=== PATIENT | male | born 1960 | race Caucasian/White ===

== ENCOUNTER 2018-06-08 23:26 | Emergency (ER) | payer OTHER ==
[~2018-06-08] VITALS: Ht 193 cm; Wt 149.7 kg
[~2018-06-08 23:26] MED LIST: ADVIL200 MG PO; BACTRIM DS TAB1 EACH PO; BISACODYL5 MG PO; CRUTCH1 EACH; CYCLOBENZAPRINE10 MG PO; CYCLOBENZAPRINE5 MG PO; FLOMAX0.4 MG PO; HYDROXYZINE HCL25 MG PO; KEFLEX500 MG PO; MOBIC7.5 MG PO; NORCO 7.5-3251 EACH PO; OMEPRAZOLE20 MG PO; OXYCODONE HCL5 MG PO
[2018-06-08] MEDS ORDERED: ZANTAC150 MG PO (23:35)
[2018-06-09] MEDS ORDERED: NORCO 5-325 TA1 EACH PO (00:07)
[2018-06-09] MEDS ORDERED: CRUTCH1 EACH MISC (00:08)
== END 2018-06-09 00:42 | disposition home or self-care (01) ==
LOC: ED 23:26
DX: S82.441A Displaced spiral fracture of shaft of right fibula, initial encounter for closed fracture (principal); Z86.19 Personal history of other infectious and parasitic diseases; F17.200 Nicotine dependence, unspecified, uncomplicated; Z88.0 Allergy status to penicillin; Z79.899 Other long term (current) drug therapy; W01.0XXA Fall on same level from slipping, tripping and stumbling without subsequent striking against object, initial encounter
CPT/HCPCS: 73610; 99283

== ENCOUNTER 2018-07-16 07:40 | Day surgery (SDC) | payer OTHER ==
[~2018-07-16] VITALS: Ht 193 cm; Wt 145.7 kg
[~2018-07-16 07:40] MED LIST changes: +CRUTCH1 EACH MISC; +NORCO 5-325 TA1 EACH PO; +ZANTAC150 MG PO
--- NOTE | 2018-07-16 13:20 | NUR ---
07/16/18 1320 Sheets,Kami 1313 PT ARRIVED TO PACU ON 10L VIA MASK WITH ORAL AIRWAY IN PLACE. PT NONAROUSABLE TO PAINFUL STIMULI.
--- NOTE | 2018-07-16 14:24 | NUR ---
NO NON VERBAL SIGNS OF PAIN NOTED. PATIENT IS SLURRING HIS WORDS AND FALLING ASLEEP WHILE TALKING TO ME. SANDWICH ORDERED FROM DIETARY. ICED WATER GIVEN. CALL LIGHT W/IN REACH. CONTINUOUS PULSE OXIMETER IN PLACE.
--- NOTE | 2018-07-16 14:41 | NUR ---
OXIMETER IS ALARMING. THIS RN ENTERS THE ROOM AND OXYGEN SATURATION IS 88% ON RA. PATIENT'S NAME CALLED LOUDLY. PATIENT DOES NOT WAKE UP. PATIENT'S CHEST IS TAPPED AND HIS NAME IS CALLED LOUDLY AND PATIENT OPENS HIS EYES. PATIENT'S WORDS CONTINUE TO BE SLURRED AND PATIENT IS TALKING NONSENSE - TALKS ABOUT PUTTING A CORK ON HIS PHONE SO HE DOESN'T STAB HIMSELF IN THE EYE. PATIENT ASKS ME TO PUT HIS SANDWICHES ON HIS FACE. PATIENT'S SANDWICHES HAVE NOT ARRIVED FROM DIETARY. PATIENT FALLS QUICKLY BACK TO SLEEP WHEN LEFT UNSTIMULATED AND FALLS QUICKLY TO 88% ON RA. PATIENT IS PLACED ON 2L VIA NC AND OXYGEN SATURATION IS 97% ON 2L.
--- NOTE | 2018-07-16 15:31 | NUR ---
PATIENT'S TOP DENTURE IS HANGING OUT OF HIS MOUTH WHEN THIS RN ENTERS THE ROOM. PATIENT DOES NOT WAKE TO LOUD VOICE. PATIENT'S CHEST IS TAPPED AND HIS VOICE IS SAID LOUDLY AND PATIENT STARTLES AWAKE. PATIENT UNABLE TO STAY AWAKE TO ANSWER QUESTIONS. SANDWICHES ARE PRESENT IN FRONT OF THE PATIENT AND 1/2 THE GRILLED CHEESE HAS BEEN EATEN. CRUMBS AND MELTED CHEESE ARE NOTED TO THE FRONT OF THE PATIENT'S GOWN. CONTINUOUS PULSE OXIMETER REMAINS IN PLACE.
[2018-07-16] MEDS ORDERED: NORCO 10-325 T1 EACH PO (16:17)
--- NOTE | 2018-07-16 16:19 | NUR ---
LE 1600: PATIENT RINGS CALL LIGHT AND DEMANDS A URINAL. PATIENT APPEARS ANXIOUS. PATIENT GIVEN A URINAL. PATIENT VOIDS 500 ML DARK YELLOW URINE AND IS AWAKE AND EATING HIS SANDWICH. PATIENT DENIES ADD'L NEEDS @ THIS TIME.
--- NOTE | 2018-07-16 16:35 | NUR ---
PATIENT'S CONTINUOUS PULSE OXIMETER IS ALARMING. PATIENT HAS REMOVED HIS OXYGEN MASK AND HIS OXYGEN SATURATION IS 89% PATIENT IS ASLEEP WITH HIS SANDWICH AND HIS BAG OF CHIPS IN HIS HAND. PATIENT DOES NOT ROUSE WITH LOUD VOICE. PATIENT IS TAPPED ON HIS CHEST AND LOUD VOICE. PATIENT FALLS QUICKLY BACK TO SLEEP WHEN LEFT UNSTIMULATED.
--- NOTE | 2018-07-16 16:48 | NUR ---
PATIENT'S OXIMETER IS ALARMING. PATIENT IS ASLEEP. HIS OXYGEN SATURATION IS 84% ON RA. PATIENT DOES NOT ROUSE TO MY LOUD VOICE. OXYGEN IS PLACED INTO PATIENT'S NOSE VIA NC AND PATIENT DOES NOT ROUSE. PATIENT'S TOP DENTURE IS HANGING OUT OF HIS MOUTH. PATIENT IS PLACED ON 2L NC AND CONTINUOUS PULSE OXIMETER CONTINUES TO BE IN PLACE. PATIENT'S SPOUSE ARRIVES AT THE HOSPITAL AND ATTEMPTS TO WAKE THE PATIENT WITHOUT SUCCESS. PATIENT'S SPOUSE IS LEAVING TO RUN ERRANDS AND WILL CHECK BACK LATER.
--- NOTE | 2018-07-16 17:41 | NUR ---
PATIENT ARRIVED FROM DAY SURGERY. PATIENT TRANSFERRED FROM [facility] TO BED WITH SLIDER BOARD AND 3 ASSIST. PATIENT HAS PROFOUND WEAKNESS "NO SHOULDER JOINT" AND UNABLE TO ASSIST SELF. RIGHT LEG IN BOOT, ELEVATED ON PILLOWS, ICE IN PLACE. PATIENT RATES PAIN 4/10, APPEARS TO BE COMFORTABLE. PATIENT IS ON 2L OF OXYGEN FOR 95%. BARRIER TO DISCHARGE: PATIENT IS UNABLE TO USE ARMS WELL/CRUTCHES AND IS NON-WEIGHT BEARING TO RIGHT LEG; NEED FOR OXYGEN AT THIS TIME. DINNER ORDERED FOR PATIENT.
--- NOTE | 2018-07-16 19:30 | NUR ---
PATIENT SNORING IN BED, GOT REPORT, O2 SATS 95% ON ROOM AIR.
--- NOTE | 2018-07-16 20:06 | NUR ---
PATIENT HAS EATEN HIS THIRD DINNER, BUT THEN GOES RIGHT BACK TO SLEEP. GIRLFRIEND COMING IN TO VISIT. VS HAVE BEEN STABLE. PATIENT IS NOT IN ANY PAIN.
--- NOTE | 2018-07-16 22:00 | NUR ---
PATIENT CALLED AND ASKED FOR MORE FOOD AFTER GIRLFRIEND AND DAUGHTER LEFT, BUT WAS ASLEEP BY THE TIME I GOT TO THE ROOM.
--- NOTE | 2018-07-16 23:04 | NUR ---
PATIENT RESTING, EYES CLOSED SNORING, SATS 100% ON ROOM AIR.
--- NOTE | 2018-07-17 00:39 | NUR ---
PATIENT WAS INCONTINENT STOOL THROUGHOUT HIS BED. GOT HIM TO THE BATHROOM WITH HIS CRUTCHES AND WASHED UP. NEW GOWN AND ATTENDS. DIRTY UNDERWEAR PLACED IN A SEPERATE BELONGING BAG. PATIENT ASKED I CALL HIS GIRLFRIEND TO COME GET HIM. I DID AND SHE COULD NOT COME GET HIM. HE IS BACK IN BED NOW EATING MORE SNACKS.
--- NOTE | 2018-07-17 01:53 | NUR ---
PATIENT CURRENTLY IN THE REST ROOM AGAIN ESCHORTED BY LUIS ANGEL FIELDS WITH PATIENT USING HIS CRUTCHES.
--- NOTE | 2018-07-17 02:30 | NUR ---
medicated with norco 1 tab 10/10 r leg pain
--- NOTE | 2018-07-17 03:05 | NUR ---
PATIENT'S PAIN IS DOWN TO 0/10 AND HE ASKED FOR A BLANKET AND LIGHTS OUT AND HE IS GOING TO TRY AND GET SOME SLEEP.
--- NOTE | 2018-07-17 06:24 | NUR ---
PATIENT HAD INFORMED LUIS ANGEL FIELDS THAT [facility] HAD TAKEN HIS 10/10 PAIN TO 0/10 OVER 30 MINUTES AND THEN SAID HE WAS BACK TO 10/10 PAIN AGAIN. I PREMEDICATED PATIENT WITH 4MG ZOFRAN AND THEN 4MG OF IV MORPHINE. PATIENT'S PAIN IS ALREADY COMING DOWN.
--- NOTE | 2018-07-17 06:36 | NUR ---
PATIENT UP TO THE BATHROOM SEVERAL TIMES TO PEE AND HAD STOOLS WALKING WITH HIS CRUTCHES AND STANDBY ASSIST. SOILED THE BED ONCE AND IT HAD TO BE CHANGED. CURRENTLY TRYING TO BRING DOWN PATIENT'S RIGHT LEG PAIN.
--- NOTE | 2018-07-17 09:30 | NUR ---
PT UP IN BATHROOM WITH BURGLARY INVESTIGATOR. PT HAS BEEN INSTRUCTED NOT TO BEAR WEIGHT ON SURGICAL EXTREMITY. PT CONTINUES TO BEAR WEIGHT ON LEG, EVEN WITH CONTINUED INSTRUCTION NOT TO.
--- NOTE | 2018-07-17 12:34 | NUR ---
PT LAYING ON BED, DRESSED AND SAID HE WAS WAITING FOR A RIDE HE HOPES IS COMING. I INFORMED OF A CARE RIDE IF HE NEEDED ONE. HE THANKED ME, AND I EXTENDED A BLESSING.
--- NOTE | 2018-07-21 07:09 | OR ---
[facility] [address], [place] [address] Signed DATE OF OPERATION: 07/16/2018 SURGEON: Nathan Mendez MD PREOPERATIVE DIAGNOSIS: Malunion distal fibular fracture right with lateral talar shift. POSTOPERATIVE DIAGNOSIS: Malunion distal fibular fracture right with lateral talar shift. PROCEDURE PERFORMED: Fibular osteotomy and revision ankle fracture right. ANESTHESIA: General. SPECIMENS AND COMPLICATIONS: There were no specimens or complications. TOURNIQUET TIME: About an hour. WHAT WAS DONE: The patient was taken to the operating room. After anesthesia was induced and airway secured, the patient's right lower extremity was positioned prepped and draped in the routine sterile fashion. A straight lateral approach was made over the distal fibula. Skin and subcutaneous tissue were divided sharply. Distal fibula was exposed laterally and posterolaterally with a #15 blade and a periosteal elevator. The fracture site had abundant callus but had actually already significantly calcified and appeared healed. We mobilized a portion of it laterally but then used an osteotome to refracture the fibula through the old primary fracture line. We then able to pull the distal fragment distally to regain fibular length. We made a small counter incision medially, used a large pelvic reduction clamp to close down the mortise medially. We then you use a couple of K-wires to provisionally hold the fibula in place. We then secured the construct with an 8-hole one-third semitubular plate. This gave us good alignment, good position, excellent apposition of the osteotomy site and a concentric ankle joint. The wound was then copiously irrigated and closed in a standard fashion. A sterile dressing, a bulky dressing were placed. He was placed in a new Cam walker boot. He was awakened, taken to the recovery room where he arrived in stable condition. Counts were correct and Electronically Signed By: NATHAN MENDEZ MD 07/21/18 0709 PATIENT NAME: BECKY KWOK OPERATIVE REPORT DATE OF : 62 REPORT #: [id number] PHYSICIAN: NATHAN MENDEZ MD PCP: ALIA SKINNER MD REPORT IS CONFIDENTIAL AND NOT TO BE RELEASED WITHOUT AUTHORIZATION [address] [place], [place] [address] Signed antibiotic protocols were followed. Nathan Mendez MD WFB/MODL /[id number] Copies: ~ Electronically Signed By: NATHAN MENDEZ MD 07/21/18 0709 PATIENT NAME: EBCKY KWOK OPERATIVE REPORT DATE OF : 62 REPORT #: [id number] PHYSICIAN: NATHAN MENDEZ MD PCP: ALIA SKINNER MD REPORT IS CONFIDENTIAL AND NOT TO BE RELEASED WITHOUT AUTHORIZATION
== END 2018-07-17 10:30 | disposition home or self-care (01) ==
LOC: DS 07:40 → MS 17:15 → DS 07-17 10:30 → MS 07-17 10:30
PROVIDERS: Orthopaedic Surgery
PROC: 0QHJ04Z Insertion of Internal Fixation Device into Right Fibula, Open Approach (ICD-10-PCS; principal; 2018-07-16 11:00)
DX: S82.831P Other fracture of upper and lower end of right fibula, subsequent encounter for closed fracture with malunion (principal); K21.9 Gastro-esophageal reflux disease without esophagitis; I10 Essential (primary) hypertension; F17.210 Nicotine dependence, cigarettes, uncomplicated; Z88.0 Allergy status to penicillin; Z79.899 Other long term (current) drug therapy
CPT/HCPCS: 01480; 64445; 73600; 76942; C1713; J0690; J0735; J1100; J1885; J2250; J2270; J2405; J2704; J2765; J3010; J7120; L4386

== ENCOUNTER 2021-03-04 17:26 | Emergency (ER) | payer OTHER ==
[~2021-03-04] VITALS: Ht 193 cm; Wt 127.9 kg
[~2021-03-04 17:26] MED LIST changes: +NORCO 10-325 T1 EACH PO
[2021-03-04] MEDS ORDERED: OMEPRAZOLE20 MG PO (18:30)
[2021-03-04] MEDS ORDERED: NAPRELAN500 MG PO (18:31)
[2021-03-04] MEDS ORDERED: HYDROCODON-ACE1 EA10 PO (21:46)
[2021-03-04] MEDS ORDERED: DOXYCYCLINE HY100 MG PO (21:46)
== END 2021-03-04 22:15 | disposition home or self-care (01) ==
LOC: ED 17:26
DX: D17.9 Benign lipomatous neoplasm, unspecified (principal); F17.200 Nicotine dependence, unspecified, uncomplicated; Z88.0 Allergy status to penicillin; Z79.899 Other long term (current) drug therapy
CPT/HCPCS: 76882; 99283-25

== ENCOUNTER 2021-07-24 11:39 | Emergency (ER) | payer OTHER ==
[~2021-07-24] VITALS: Ht 193 cm; Wt 128.0 kg
[~2021-07-24 11:39] MED LIST changes: +DOXYCYCLINE HY100 MG PO; +HYDROCODON-ACE1 EA10 PO; +NAPRELAN500 MG PO
[2021-07-24] MEDS ORDERED: TAMIFLU75 MG PO (14:34)
[2021-07-24] MEDS ORDERED: PREDNISONE20 MG PO (14:34)
--- NOTE | 2021-07-26 11:42 | EKG ---
[facility] [address] [facility] [place], [place] [address] Signed Normal sinus rhythm Right axis deviation Abnormal ECG When compared with ECG of 09-NOV-2018 13:30, No significant change was found Confirmed by CLAUDIO CISSE MD ([id number]) on 07/26/2021 11:42:23 AM Electronically Signed By: CLAUDIO CISSE MD 07/26/21 1142 PATIENT NAME: BECKY KWOK Electrocardiogram DATE OF : 62 PHYSICIAN: CLAUDIO CISSE MD REPORT #: [id number] REPORT IS CONFIDENTIAL AND NOT TO BE RELEASED WITHOUT AUTHORIZATION
== END 2021-07-24 15:13 | disposition home or self-care (01) ==
LOC: ED 11:39
DX: J10.1 Influenza due to other identified influenza virus with other respiratory manifestations (principal); J45.909 Unspecified asthma, uncomplicated; F17.200 Nicotine dependence, unspecified, uncomplicated; Z88.0 Allergy status to penicillin; Z79.899 Other long term (current) drug therapy; Z20.822 Contact with and (suspected) exposure to COVID-19
CPT/HCPCS: 36415; 71045; 80048; 83880; 85025; 93005; 93010; 94640; 94664; 96374; 99285-25; C9803; J2930; U0003

== ENCOUNTER 2021-08-02 12:41 | Emergency (ER) | payer OTHER ==
[~2021-08-02] VITALS: Ht 193 cm; Wt 128.0 kg
[~2021-08-02 12:41] MED LIST changes: +PREDNISONE20 MG PO; +TAMIFLU75 MG PO
--- OUTSIDE RECORDS SUMMARY | 2021-08-02 12:44 | XMS ---
PreManage Notification: BECKY KWOK Security Move Coordinator Events No recent Security Events currently on file CRITERIA MET - [facility] - 2 Visits in 30 Days CARE PROVIDERS There are no care providers on record at this time. [place] has no Care Guidelines for this patient. [facility] VISIT COUNT (12 MO.) 1 [facility] [address] [facility] TOTAL 4 NOTE: Visits indicate total known visits. ED/C VISIT TRACKING (12 MO.) 08/02/2021 12:42 [facility] [place] TYPE: Emergency COMPLAINT: - POSS STROKE, LUNG PAIN 07/24/2021 11:40 [facility] [place] TYPE: Emergency COMPLAINT: - BODY ACHES, SOB DIAGNOSES: - Nicotine dependence, unspecified, uncomplicated - Allergy status to penicillin - Influenza due to other identified influenza virus with other respiratory manifestations - Other longwall shearer operator (current) drug therapy - COUGH, UNSPECIFIED - Contact with and (suspected) exposure to COVID-19 - Unspecified asthma, uncomplicated - Cough, unspecified 03/04/2021 17:27 [facility] [place] TYPE: Emergency COMPLAINT: - POSS ABSCESS DIAGNOSES: - Benign lipomatous neoplasm, unspecified - Nicotine dependence, unspecified, uncomplicated - Other longwall shearer operator (current) drug therapy - Allergy status to penicillin 10/19/2020 07:27 [facility] TYPE: Emergency DIAGNOSES: - Cough - Bronchitis, not specified as acute or chronic - Wound - Disorder of the skin and subcutaneous tissue, unspecified - Other stimulant abuse, uncomplicated INPATIENT VISIT TRACKING (12 MO.) No inpatient visits to display in this time frame [email or web address]
--- NOTE | 2021-08-02 17:28 | EKG ---
[facility] [address] [facility] [place], [place] [address] Signed Normal sinus rhythm Normal ECG When compared with ECG of 24-JUL-2021 12:58, QRS axis shifted left Confirmed by CLAUDIO CISSE MD ([id number]) on 08/02/2021 5:28:13 PM Electronically Signed By: CLAUDIO CISSE MD 08/02/21 1728 PATIENT NAME: SUNDARBECKY Electrocardiogram DATE OF : 62 PHYSICIAN: CLAUDIO CISSE MD REPORT #: [id number] REPORT IS CONFIDENTIAL AND NOT TO BE RELEASED WITHOUT AUTHORIZATION
[2021-08-02] MEDS ORDERED: ZITHROMAX250 MG PO (18:10)
== END 2021-08-02 18:20 | disposition home or self-care (01) ==
LOC: ED 12:41
DX: F15.10 Other stimulant abuse, uncomplicated (principal); J32.9 Chronic sinusitis, unspecified; G89.29 Other chronic pain; M25.519 Pain in unspecified shoulder; F17.200 Nicotine dependence, unspecified, uncomplicated; Z88.0 Allergy status to penicillin; Z79.899 Other long term (current) drug therapy; Z79.52 Long term (current) use of systemic steroids; Z20.822 Contact with and (suspected) exposure to COVID-19
CPT/HCPCS: 36415; 70450; 70496; 70498; 70551; 71045; 80053; 85025; 85610; 85730; 93005; 93010; 94640; 99284-25; C9803; Q9967; U0003

== ENCOUNTER 2022-12-10 22:32 | Emergency (ER) | payer OTHER ==
[~2022-12-10] VITALS: Ht 193 cm; Wt 111.2 kg
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
--- OUTSIDE RECORDS SUMMARY | ~2022-12-10 | XMS | Continuity of Care Document ---
Demographics + + + | Address | [address] | | | [place] [address] | + + + | Preferred Language | Unknown | + + + | Marital Status | | + + + | [employer] Affiliation | Unknown | + + + | Race | White | + + + | Ethnic Group | Not or | + + + Author + + + | Author | [facility] | + + + | Organization | [facility] | + + + | Address | [address] | | | [place] [address] | + + + | Phone | | + + + Care Team Providers + + + + | Care Ham Facer Name | Role | Phone | + [...] | (no date) | Penicillin | [facility] | (no reaction) | (no severity) | | | | [facility] | | | [facility] | | | + + + + + + Encounters No information. Functional Status No information. Immunizations No information. Medications + + + + | date | description | facility | + + + + | 2015-12-12 00:00 | OXYCODONE HCL | [facility] | + + + + | 2022-09-24 00:00 | NAPROXEN SODIUM | [facility] | + + + + | 2022-09-24 00:00 | MELOXICAM | [facility] | + + + + | 2022-09-24 00:00 | IBUPROFEN | [facility] | + + + + | 2021-03-04 00:00 | DOXYCYCLINE HYCLATE | [facility] | + + + + | 2022-09-24 00:00 | OMEPRAZOLE | [facility] | + + + + | 2022-09-24 00:00 | OMEPRAZOLE | [facility] | + + + + | 2016-03-19 00:00 | CEPHALEXIN | [facility] | + + + + | 2022-09-24 00:00 | BISACODYL | [facility] | + + + + | 2022-09-24 00:00 | CEFPODOXIME PROXETIL | [facility] | + + + + | 2022-09-24 00:00 | AZITHROMYCIN | [facility] | + + + + | 2022-09-24 00:00 | BENZOCAINE/MENTHOL | [facility] | + + + + | 2022-09-24 00:00 | RANITIDINE HCL | [facility] | + + + + | 2022-09-24 00:00 | CYCLOBENZAPRINE HCL | [facility] | + + + + | 2016-03-19 00:00 | | [facility] | | | SULFAMETHOXAZOLE/TRIMETHOPR | | | | IM DS | | + + + + | 2022-09-24 00:00 | HYDROCODONE/APAP | [facility] | | | (10-325MG) | | + + + + | 2021-03-04 00:00 | HYDROCODONE | [facility] | | | BIT/ACETAMINOPHEN | | + + + + | 2014-09-06 00:00 | HYDROCODONE | [facility] | | | BIT/ACETAMINOPHEN | | + + + + | 2022-09-24 00:00 | TAMSULOSIN HCL | [facility] | + + + + | 2022-09-24 00:00 | hydrOXYzine HCL | [facility] | + + + + Problems + + + + | date | description | facility | + + + + | 2014-09-06 00:00 | Knee pain | [facility] | + + + + | 2014-12-19 00:00 | Chronic knee pain | [facility] | + + + + | 2015-12-11 00:00 | Hepatitis C virus | [facility] | | | infection | | + + + + | 2015-12-11 00:00 | Alcohol withdrawal | [facility] | | | syndrome | | + + + + | 2015-12-11 00:00 | Left lower lobe pneumonia | [facility] | + + + + | 2015-12-11 00:00 | 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 | | + + + + | 2016-03-09 00:00 | Biliary calculus with | [facility] | | | cholecystitis | | + + + + | 2016-03-09 00:00 | Biliary colic | [facility] | + + + + | 2016-03-09 00:00 | Calculus of bile duct with | [facility] | | | obstruction | | + + + + | 2016-03-09 00:00 | Cholangitis | [facility] | + + + + | 2016-03-09 00:00 | Acute abdominal pain | [facility] | + + + + | 2016-03-19 00:00 | Superficial incisional | [facility] | | | infection of surgical site | | + + + + | 2018-06-09 00:00 | Closed fracture of distal | [facility] | | | end of right fibula | | + + + + | 2021-03-04 00:00 | Lipoma | [facility] | + + + + | 2021-07-24 00:00 | Influenza due to influenza | [facility] | | | virus, type A, human | | + + + + | 2021-07-24 00:00 | Reactive airway disease | [facility] | + + + + | 2021-08-02 00:00 | Methamphetamine abuse | [facility] | + + + + | 2021-08-02 00:00 | Transient ischemic attack | [facility] | + + + + | 2021-08-02 00:00 | Sinusitis | [facility] | + + + + | 2021-08-02 00:00 | Chronic shoulder pain | [facility] | + + + + | 2022-09-23 00:00 | Hypokalemia | [facility] | + + + + | [...] (missing) | | (unavailable | 14::07 | [facility] | | | | | ) | [...]
[~2022-12-10 22:32] MED LIST changes: +AZITHROMYCIN500 MG PO; +CEFPODOXIME PR200 MG PO; +OMEPRAZOLE40 MG PO; +SORE THROAT LO1 EAC3 MM; +ZITHROMAX250 MG PO
--- OUTSIDE RECORDS SUMMARY | 2022-12-10 22:35 | XMS ---
PreManage Notification: BECKY KWOK Security Automatic Clipper Events No recent Security Events currently on file CRITERIA MET - [place] [facility] - 2 Visits in 30 Days CARE PROVIDERS -[place]- Dentist: Rehabilitation Services Aide [facility] PHONE: [phone] [place] has no Care Guidelines for this patient. ERafi VISIT COUNT (12 MO.) [address] TOTAL 4 NOTE: Visits indicate total known visits. ED/C VISIT TRACKING (12 MO.) 12/10/2022 22:33 [facility] [place] TYPE: Emergency COMPLAINT: - EAR PROBLEM 12/10/2022 16:12 [facility] [place] TYPE: Emergency COMPLAINT: - EAR PAIN 09/23/2022 13:49 [facility] [place] TYPE: Emergency COMPLAINT: - SHORTNESS OF BREATH 04/08/2022 13:23 [facility] TYPE: Emergency DIAGNOSES: - Other stimulant abuse, uncomplicated - Unspecified cord compression - Numbness INPATIENT VISIT TRACKING (12 MO.) 09/23/2022 13:[address] [facility] [place] TYPE: Observation COMPLAINT: - PNEUMONIA, UVULAR HYDROPS, HYPOKALEMIA DIAGNOSES: - Allergy status to penicillin - Benign prostatic hyperplasia without lower urinary tract symptoms - Contact with and (suspected) exposure to COVID-19 - Hypokalemia - Hypoxemia - Localized edema - Other stimulant abuse, uncomplicated - Pneumonia, unspecified organism [email or web address]
[2022-12-10 23:34] VITALS: BP 122/73
== END 2022-12-10 23:35 | disposition home or self-care (01) ==
LOC: ED 22:32
DX: H60.93 Unspecified otitis externa, bilateral (principal); F17.200 Nicotine dependence, unspecified, uncomplicated; Z88.0 Allergy status to penicillin; Z79.899 Other long term (current) drug therapy

== ENCOUNTER 2024-04-10 17:11 | Emergency (ER) | payer OTHER ==
[~2024-04-10] VITALS: Ht 193 cm; Wt 115.8 kg
[2024-04-10 18:49] LABS: INFLUENZA B NAA NEGATIVE (NEGATIVE); RESPIRATORY SYNCYTIAL VIR NAA NEGATIVE (NEGATIVE)
[2024-04-10] MEDS ORDERED: NAPROXEN500 MG PO (19:03)
[2024-04-10] MEDS ORDERED: ALBUTEROL/IPRATROPIUM 3 ML NEB INH ONE (20:15)
[2024-04-10] MEDS ORDERED: methylPREDNISolone 4 MG HOME.PACK PO ONE (21:00)
[2024-04-10] MEDS ORDERED: ALBUTEROL SULFATE 8 GM HOME.PACK INH ONE (21:00)
[2024-04-10] MEDS ORDERED: INHALER, ASSIST DEVICES 1 EACH SPACER MISC ONE (21:00)
[2024-04-10 21:05] VITALS: BP 161/97
== END 2024-04-10 21:05 | disposition home or self-care (01) ==
LOC: ED 17:11
PROVIDERS: Emergency Medicine
DX: J40 Bronchitis, not specified as acute or chronic (principal); F17.200 Nicotine dependence, unspecified, uncomplicated; Z88.0 Allergy status to penicillin; Z79.1 Long term (current) use of non-steroidal anti-inflammatories (NSAID); Z79.899 Other long term (current) drug therapy
CPT/HCPCS: 71045; 87502; 94640; 94664; 99285-25; U0002

== ENCOUNTER 2024-06-21 02:17 | Emergency (ER) | payer OTHER ==
[~2024-06-21] VITALS: Ht 193 cm; Wt 114.8 kg
[~2024-06-21 02:17] MED LIST changes: +NAPROXEN500 MG PO
[2024-06-21] MEDS ORDERED: SODIUM CHLORIDE 0.9% 1,000 ML IV SCH ×2 (02:30→04:45)
[2024-06-21] MEDS ORDERED: ondansetron HCL 4 MG/2 ML VIAL IV ONE (02:30)
[2024-06-21 02:38] LABS: BASOPHILS 0.5 % (0-2); EOSINOPHILS 0.9 % (0-6); HEMATOCRIT 41.6 % (35.0-50.0); HEMOGLOBIN 13.7 g/dL (12.0-18.0); MCH 25.7 (27-36); MCHC 32.9 g/dl (30-36); MCV 78.1 fl (81-99); MONOCYTES 6.4 % (0-12); NEUTROPHILS 82.2 % (39-80); PLATELET COUNT 207 K/uL (140-440); RBC 5.33 M/ul (4.3-5.7); RDW 16.8 (10.5-15.0)
[2024-06-21 02:57] LABS: ALBUMIN 4.1 g/dL (3.4-5.0); ANION GAP 9.2 (7-21); BILIRUBIN, TOTAL 0.7 mg/dL (0.2-1.0); BUN/CREATININE RATIO 16.31 (6.0-28.6); CALCIUM 10.4 mg/dL (8.5-10.1); CREATININE, SERUM 1.41 mg/dL (0.70-1.30); POTASSIUM 3.2 mmol/L (3.5-5.1); PROTEIN, TOTAL 8.2 g/dL (6.4-8.2)
[2024-06-21] MEDS ORDERED: droPERidol 5 MG/2 ML VIAL IV ONE (04:15)
[2024-06-21] MEDS ORDERED: KETOROLAC TROMETHAMINE 30 MG/ML VIAL IV ONE (04:30)
[2024-06-21 04:32] LABS: BILIRUBIN, URINE NEGATIVE (negative); BLOOD/HGB, URINE NEGATIVE (Negative); KETONE, URINE SMALL (Negative); LEUK ESTERASE, URINE NEGATIVE (negative); NITRITE, URINE NEGATIVE (negative)
[2024-06-21] MEDS ORDERED: HYDROmorphone HCL 1 MG/ML SYR IV PRN (04:45)
[2024-06-21 04:50] LABS: AMPHETAMINES, URINE POSITIVE (NEGATIVE); BARBITURATES, URINE NEGATIVE (NEGATIVE); BENZODIAZEPINE, URINE NEGATIVE (NEGATIVE); CANNABINOID, URINE NEGATIVE (NEGATIVE); COCAINE, URINE NEGATIVE (NEGATIVE); ECSTASY, URINE POSITIVE (NEGATIVE); FENTANYL, URINE NEGATIVE (NEGATIVE); METHADONE, URINE NEGATIVE (NEGATIVE); OPIATES, URINE NEGATIVE (NEGATIVE); OXYCODONE, URINE NEGATIVE (NEGATIVE); PHENCYCLIDINE, URINE NEGATIVE (NEGATIVE)
[2024-06-21 04:59] LABS: BACTERIA, URINE RARE /hpf (negative); CRYSTALS, URINE NONE SEEN (0-1+); EPITHELIAL CELLS, URINE NONE SEEN /lpf (0-1+)
[2024-06-21 05:00] LABS: CASTS, URINE HYALINE 3+ \\lpf; COLLECTION TYPE, URINE CLEAN CATCH; REFLEX CULTURE, URINE No (No)
[2024-06-21 05:07] LABS: BUPRENORPHINE, URINE NEGATIVE (NEGATIVE)
[2024-06-21 08:48] VITALS: BP 108/63
== END 2024-06-21 08:50 | disposition short-term general hospital (02) ==
LOC: ED 02:17
PROVIDERS: Emergency Medicine
DX: K31.89 Other diseases of stomach and duodenum (principal); F17.200 Nicotine dependence, unspecified, uncomplicated; Z88.0 Allergy status to penicillin; Z79.1 Long term (current) use of non-steroidal anti-inflammatories (NSAID); Z79.899 Other long term (current) drug therapy
CPT/HCPCS: 36415; 71045; 71260; 74160; 74177; 80053; 80307; 81001; 83690; 83880; 85025; 85379; 94667; 96361; 99285-25; J1171; J1790; J1885; J2405; J7030; Q9967